=== PATIENT | female | born 1965 | race Caucasian/White ===

== ENCOUNTER 2022-12-14 10:06 | Emergency (ER) | payer MEDICAID ==
[2022-12-14 10:48] LABS: RAPID STREP SCREEN POSITIVE (Negative)
[2022-12-14] MEDS ORDERED: AMOXICILLIN 250 MG CAPSULE PO STA (10:58)
--- NOTE | 2022-12-14 11:13 | ED Physician Documentation ---
PD HPI HEENT - Stated complaint Stated Complaint: HEADACHE, SORE THROAT - Chief complaint Chief Complaint: Heent - History obtained from History obtained from: Patient - Additional information Additional information: Patient presenting for evaluation of sore throat that has been present since yesterday. Her son had strep throat last week. Patient reports that she would often get strep as a child. She denies known fever, cough, congestion. No vomiting or diarrhea. She is doing okay with liquids but has more pain with solid food. Review of Systems Constitutional: denies: Fever Throat: reports: Sore throat Cardiac: denies: Chest pain / pressure Respiratory: denies: Dyspnea, Cough GI: denies: Abdominal Pain, Vomiting Neurologic: denies: Headache PD PAST MEDICAL HISTORY - Present Medications Home Medications: Ambulatory Orders Medication Instructions Recorded Confirmed Amoxicillin 1,000 mg PO ONCE 10 Days #30 cap 12/14/22 - Allergies Allergies/Adverse Reactions: Allergies Allergy/AdvReac Type Severity Reaction Status Date / Time No Known Drug Allergies Allergy Verified 12/14/22 10:22 PD ED PE NORMAL - General General: Alert and oriented X 3, No acute distress, Well developed/nourished - HEENT HEENT: Atraumatic, Ears normal, Moist mucous membranes, Pharynx benign (White exudate to bilateral tonsils, mild tonsillar enlargement, no signs of Tonsillar abscess), Other - Neck Neck: Supple, no meningeal sign - Cardiac Cardiac: RRR, No murmur - Respiratory Respiratory: No respiratory distress, Clear bilaterally - Derm Derm: Warm and dry - Neuro Neuro: Normal speech Results - Vitals Vitals: Vital Signs - 24 hr 12/14/22 12/14/22 12/14/22 10:16 10:39 11:17 Temperature 36.7 C 36.9 C Heart Rate 89 85 Respiratory 16 18 Rate Blood Pressure 109/67 100/67 O2 Saturation 96 99 Oxygen O2 Source Room air - Labs Labs: Laboratory Tests 12/14/22 10:25 Group A Strep Rapid POSITIVE H PD Medical Decision Making - ED course Complexity details: reviewed results, re-evaluated patient, d/w patient ED course: Patient presenting for evaluation of sore throat x2 days. Vital signs are stable. No signs of trismus, Oral swelling or abscess.Her strep test is positive. We will start an antibiotic. The patient counseled to continue with antibiotic treatment as well as anti-inflammatories. She is advised on concerning symptoms to return for. Departure - Departure Disposition: 01 Home, Self Care Clinical Impression: Strep pharyngitis Condition: Stable Instructions: ED Strep Pharyngitis Conf Prescriptions: Amoxicillin 1,000 mg PO ONCE 10 Days #30 cap Comments: Your strep test is positive. I am starting you on an antibiotic and have sent this prescription to [facility] in [place].We will be on the antibiotic for 10 days. If you develop any worsening symptoms such as trouble swallowing, shortness of breath or any new concerns please consider return to the emergency department.Continue with anti-inflammatory such as ibuprofen or acetaminophen. Discharge Date/Time: 12/14/22 11:19
[2022-12-14 11:17] VITALS: BP 100/67
== END 2022-12-14 11:19 | disposition home or self-care (01) ==
LOC: ED 10:06
DX: J02.0 Streptococcal pharyngitis (principal)
CPT/HCPCS: 87430; 99283; A9270

== ENCOUNTER 2023-01-04 00:54 | Outpatient (CLI) | payer MEDICAID | END 2023-01-04 00:55 | disposition EMS.NT | LOC: EMS 00:54 | DX: R11.10 Vomiting, unspecified (principal) ==

== ENCOUNTER 2024-02-14 10:07 | Emergency (ER) | payer MEDICAID, OTHER ==
[2024-02-14 11:02] LABS: RAPID STREP SCREEN Negative (Negative)
--- NOTE | 2024-02-14 11:22 | ED Physician Documentation ---
PD HPI URI - Stated complaint Stated Complaint: SORE THROAT, DURAN, MUSCLE ACHES, HARD TO SWALLOW - Chief complaint Chief Complaint: Heent - History obtained from History obtained from: Patient - History of Present Illness Timing - onset: Last night Timing duration: Days (1) Timing details: Abrupt onset, Still present Associated symptoms: Sore throat, Swollen nodes. 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 - Present Medications Home Medications: Ambulatory Orders Medication Instructions Recorded Confirmed Amoxicillin 500 mg PO TID #21 cap 02/14/24 dexAMETHasone [Decadron] 4 mg PO DAILY #5 tablet 02/14/24 - Allergies Allergies/Adverse Reactions: Allergies Allergy/AdvReac Type Severity Reaction Status Date / Time No Known Drug Allergies Allergy Verified 02/14/24 10:32 - Social History Does the pt smoke?: No Smoking Status: Never smoker Does the pt drink ETOH?: No Does the pt have substance abuse?: No - Immunizations Immunizations are current?: Yes - POLST Patient has POLST: No PD ED PE NORMAL - Vitals Vital signs reviewed: Yes - General General: Alert and oriented X 3, Well developed/nourished - HEENT HEENT: No: Pharynx benign (tonsils red and enlarged both sides without peritonsilalr edema. ) - Neck Neck: Supple, no meningeal sign, Other (anterior adenopathy both sides, mild tender. ) - Cardiac Cardiac: No: RRR, No murmur - Respiratory Respiratory: No: No respiratory distress, Clear bilaterally Results - Vitals Vitals: Oxygen O2 Source Room air - Labs Labs: Microbiology 02/14/24 10:36 Group A Strep Throat Culture - Preliminary Throat Laboratory Tests 02/14/24 02/14/24 10:36 10:36 Nasal Adenovirus (PCR) NOT DETECTED Nasal B. parapertussis DNA (PCR) NOT DETECTED Nasal Coronavir 229E PCR NOT DETECTED Nasal Coronavir HKU1 PCR NOT DETECTED Nasal Coronavir NL63 PCR NOT DETECTED Nasal Coronavir OC43 PCR NOT DETECTED Nasal Enterovir/Rhinovir PCR NOT DETECTED Nasal Influenza B PCR NOT DETECTED Nasal Influenza A PCR NOT DETECTED Nasal Parainfluen 1 PCR NOT DETECTED Nasal Parainfluen 2 PCR NOT DETECTED Nasal Parainfluen 3 PCR NOT DETECTED Nasal Parainfluen 4 PCR NOT DETECTED Nasal RSV (PCR) NOT DETECTED Nasal B.pertussis DNA PCR NOT DETECTED Nasal C.pneumoniae (PCR) NOT DETECTED Zechariah Human Metapneumo PCR NOT DETECTED Nasal M.pneumoniae (PCR) NOT DETECTED Nasal SARS-CoV-2 (PCR) NOT DETECTED Group A Strep Rapid Negative PD Medical Decision Making - ED course Complexity details: reviewed results (rapid strep negative but strong clinical suspicon so will empirically treat pending culture. ), considered differential (very sore throat without really other URI symptoms. Tonsils red and swelling without peritonsillar edema. Some anterior adenopathy. ), d/w patient Departure - Departure Disposition: 01 Home, Self Care Clinical Impression: Pharyngitis, acute Condition: Stable Record reviewed to determine appropriate education?: Yes Instructions: ED Strep Pharyngitis Poss Follow-Up: Ximena Lewis MD [Primary Care Provider] - Prescriptions: Amoxicillin 500 mg PO TID #21 cap dexAMETHasone [Decadron] 4 mg PO DAILY #5 tablet Comments: Your rapid strep is negative but that is only about 85% accurate. Clinically your tonsil and symptoms are suspicious for strep throat. I would treat this as strep throat pending the culture. The culture should result in a couple of days. It is possible to be viral with the symptoms. If so the anti-inflammatory and such would still be appropriate. I would treat with amoxicillin 3 times daily for the next week. Also we can do Decadron steroid daily for the next few days. I will help with inflammation be at bacterial or viral. Stay well-hydrated. Use a combination of Tylenol 4 times daily and some ibuprofen or such periodically as well. Local effect with Benadryl liquid or benzocaine (Cepacol or Chloraseptic) can be helpful as well. I sent your prescriptions to the [facility] in [place]. I would anticipate improving over the next 2 to 3 days and resolved by 3 to 5 days. Recheck if not better in that timeframe. Forms: PCP List Discharge Date/Time: 02/14/24 11:57
[2024-02-14] MEDS: dexAMETHasone 4 MG TABLET PO STA (11:41)
[2024-02-14] MEDS: AMOXICILLIN 250 MG CAPSULE PO STA (11:42)
[2024-02-14] MEDS: ACETAMINOPHEN 500 MG TABLET PO STA (11:43)
[2024-02-14] MEDS: IBUPROFEN 600 MG TABLET PO STA (11:43)
[2024-02-14 11:46] LABS: B. PARAPERTUSSIS- RESP PCR PAN NOT DETECTED; B. PERTUSSIS- RESP PCR PANEL NOT DETECTED; C. PNEUMONIAE- RESP PCR PANEL NOT DETECTED; CORONAVIRUS 229E-RESP PCR NOT DETECTED; CORONAVIRUS HKU1-RESP PCR NOT DETECTED; CORONAVIRUS NL63-RESP PCR NOT DETECTED; CORONAVIRUS OC43-RESP PCR NOT DETECTED; HUMAN METAPNEUMOVIRUS NOT DETECTED; INFLUENZA A- RESP PCR PANEL NOT DETECTED; INFLUENZA B - RESP PCR PANEL NOT DETECTED; M. PNEUMONIAE- RESP PCR PANEL NOT DETECTED; PARAINFLUENZA VIRUS 1 NOT DETECTED; PARAINFLUENZA VIRUS 2 NOT DETECTED; PARAINFLUENZA VIRUS 3 NOT DETECTED; PARAINFLUENZA VIRUS 4 NOT DETECTED; RHINOVIRUS/ENTEROVIRUS NOT DETECTED; RSV- RESP PCR PANEL NOT DETECTED; SARS-CoV-2 -RESP PCR PANEL NOT DETECTED
[2024-02-14 12:26] VITALS: BP 109/80; O2SAT 100
== END 2024-02-14 11:57 | disposition home or self-care (01) ==
LOC: ED 10:07
DX: J02.9 Acute pharyngitis, unspecified (principal)
CPT/HCPCS: 87070; 87430; 87633; 99283; A9270; J8540